=== PATIENT | female | born 1985 | race Caucasian/White ===

== ENCOUNTER 2017-01-27 02:08 | Inpatient (IN) | payer OTHER ==
[~2017-01-27] VITALS: Ht 162.6 cm; Wt 111.0 kg
[2017-01-27] MEDS ORDERED: OXYTOCIN 30U/ 0.9% NaCL 500ML 500 ML IV PRN (02:25)
[2017-01-27] MEDS ORDERED: OXYTOCIN 30U/ 0.9% NaCL 500ML 500 ML IV ONE (02:25)
[2017-01-27] MEDS ORDERED: OXYTOCIN 30U/ 0.9% NaCL 500ML 500 ML ONE (02:29)
[2017-01-27] MEDS ORDERED: ALUMINUM/MAG/SIMETHICONE 30 ML UDC PO PRN (02:30)
[2017-01-27] MEDS ORDERED: TERBUTALINE 1 MG/ML, 1ML IVPush PRN ×2 (02:30)
[2017-01-27] MEDS ORDERED: SODIUM CITRATE/CITRIC ACID 30 ML UDC PO PRN (02:30)
[2017-01-27] MEDS ORDERED: METOCLOPRAMIDE 5 MG/ML, 2ML IVPush PRN (02:30)
[2017-01-27] MEDS ORDERED: ONDANSETRON 2MG/ML, 2ML IVPush PRN (02:30)
[2017-01-27] MEDS ORDERED: FENTANYL PF 100 MCG/2ML IV PRN (02:30)
[2017-01-27] MEDS ORDERED: CALCIUM CARBONATE 500 MG TAB.CHEW PO PRN (02:30)
[2017-01-27 02:31] VITALS: BP 139/91
[2017-01-27] MEDS: LACTATED RINGERS 1,000 ML IV SCH ×3 (02:58→13:32)
[2017-01-27 02:59] LABS: HEMATOCRIT 40.6 % (34.6-47.8); HEMOGLOBIN 13.5 g/dL (11.7-16.4); WHITE BLOOD COUNT 7.7 x10^3/uL (3.4-10)
[2017-01-27] MEDS ORDERED: PLEASE ENTER ALLERGIES MC SCH ×4 (03:30→07:30)
[2017-01-27] MEDS ORDERED: FENTANYL PF 100 MCG/2ML ONE ×3 (10:53→21:49)
[2017-01-27] MEDS: FENTANYL PF 100 MCG/2ML IVPush PRN ×2 (10:56→12:13)
[2017-01-27] MEDS ORDERED: FENTANYL/BUPIV./NS/PF 250 ML EPIDCONT ONE (13:08)
[2017-01-27] MEDS: D5%-LACTATED RINGERS 1,000 ML IV SCH ×2 (13:35→19:29)
[2017-01-27] MEDS ORDERED: LACTATED RINGERS 1,000 ML IV SCH (13:42)
[2017-01-27] MEDS ORDERED: FENTANYL/BUPIV./NS/PF 250 ML EPIDCONT SCH (13:42)
[2017-01-27] MEDS ORDERED: LACTATED RINGERS 1,000 ML IVBOLUS PRN (14:00)
[2017-01-27] MEDS ORDERED: AMPICILLIN 2 GM in SODIUM CHLORIDE 0.9% 100 ML IV SCH (14:30)
[2017-01-27] MEDS: AMPICILLIN 2 GM in SODIUM CHLORIDE 0.9% 50 ML IV SCH (21:14)
[2017-01-28] MEDS: AMPICILLIN 2 GM in SODIUM CHLORIDE 0.9% 50 ML IV SCH (03:02)
[2017-01-28 03:14] LABS: HEMATOCRIT 41.4 % (34.6-47.8); HEMOGLOBIN 13.7 g/dL (11.7-16.4); WHITE BLOOD COUNT 17.6 x10^3/uL (3.4-10)
[2017-01-28 03:28] LABS: ASPARTATE AMINO TRANSFERASE 18 U/L (15-37); BLOOD UREA NITROGEN 9 mg/dL (7-18)
[2017-01-28] MEDS ORDERED: FENTANYL/BUPIV./NS/PF 250 ML EPIDCONT ONE (05:13)
[2017-01-28] MEDS ORDERED: OXYTOCIN 30U/ 0.9% NaCL 500ML 500 ML ONE (06:42)
[2017-01-28] MEDS ORDERED: KETOROLAC 30 MG/1 ML ONE (07:52)
[2017-01-28] MEDS ORDERED: CEFAZOLIN 1,000 MG ONE (07:52)
[2017-01-28] MEDS ORDERED: EPHEDRINE 50 MG/ML, 1ML ONE (07:52)
[2017-01-28] MEDS ORDERED: IBUPROFEN 600 MG TABLET ONE (08:42)
[2017-01-28] MEDS ORDERED: IBUPROFEN 200 MG TABLET PO ONE (09:00)
[2017-01-28 09:30] VITALS: BP 116/65
[2017-01-28] MEDS: OXYTOCIN 30U/ 0.9% NaCL 500ML 500 ML IV SCH ×2 (09:47→19:47)
[2017-01-28] MEDS ORDERED: METHYLERGONOVINE 0.2 MG/ML IM PRN (10:00)
[2017-01-28] MEDS ORDERED: CARBOPROST TROMETHAMINE 250 MCG/ML, 1ML IM PRN (10:00)
[2017-01-28] MEDS ORDERED: OXYcodone/APAP 5/325MG TABLET PO PRN ×2 (10:00)
[2017-01-28] MEDS ORDERED: ONDANSETRON 2MG/ML, 2ML IV PRN (10:00)
[2017-01-28] MEDS ORDERED: MISOPROSTOL 200 MCG TABLET PO PRN (10:00)
[2017-01-28] MEDS ORDERED: MISOPROSTOL 200 MCG TABLET PR PRN (10:00)
[2017-01-28] MEDS ORDERED: DOCUSATE 100 MG CAPSULE PO PRN (10:00)
[2017-01-28 12:14] VITALS: BP 117/70
[2017-01-28 14:27] LABS: HEMATOCRIT 35.6 % (34.6-47.8); HEMOGLOBIN 12.1 g/dL (11.7-16.4); WHITE BLOOD COUNT 23.1 x10^3/uL (3.4-10)
[2017-01-28 16:15] VITALS: BP 123/67
[2017-01-28] MEDS: IBUPROFEN 600 MG TABLET PO PRN (19:18)
[2017-01-28 19:35] VITALS: BP 139/83
[2017-01-29 00:16] VITALS: BP 108/60
[2017-01-29] MEDS: IBUPROFEN 600 MG TABLET PO PRN (01:37)
[2017-01-29 03:56] VITALS: BP 107/57
[2017-01-29] MEDS: OXYTOCIN 30U/ 0.9% NaCL 500ML 500 ML IV SCH (05:47)
[2017-01-29 08:00] VITALS: BP 101/63
[2017-01-29] MEDS ORDERED: PRENATAL VIT/IRON/FA 1 EACH TABLET PO SCH (09:00)
== END 2017-01-29 11:50 | disposition home or self-care (01) | DRG 775 ==
LOC: LDOP 02:08 → LDIP 02:34 → 2NW 01-28 09:20
PROVIDERS: ADMIT Obstetrics & Gynecology Maternal & Fetal Medicine; ATTEND Obstetrics & Gynecology Maternal & Fetal Medicine
PROC: 10E0XZZ Delivery of Products of Conception, External Approach (ICD-10-PCS; principal; 2017-01-28)
PROC: 0HQ9XZZ Repair Perineum Skin, External Approach (ICD-10-PCS; 2017-01-28)
PROC: 3E033VJ Introduction of Other Hormone into Peripheral Vein, Percutaneous Approach (ICD-10-PCS; 2017-01-28)
PROC: 00HU33Z Insertion of Infusion Device into Spinal Canal, Percutaneous Approach (ICD-10-PCS; 2017-01-28)
PROC: 3E0R3CZ (ICD-10-PCS; 2017-01-28)
PROC: 0T9B70Z Drainage of Bladder with Drainage Device, Via Natural or Artificial Opening (ICD-10-PCS; 2017-01-28)
DX: O69.81X0 Labor and delivery complicated by cord around neck, without compression, not applicable or unspecified (principal); O16.4 Unspecified maternal hypertension, complicating childbirth; O42.02 Full-term premature rupture of membranes, onset of labor within 24 hours of rupture; O76 Abnormality in fetal heart rate and rhythm complicating labor and delivery; O14.94 Unspecified pre-eclampsia, complicating childbirth; Z37.0 Single live birth; Z3A.40 40 weeks gestation of pregnancy; O43.123 Velamentous insertion of umbilical cord, third trimester; O70.0 First degree perineal laceration during delivery
CPT/HCPCS: 36415; 80053; 81001; 82248; 82570; 82803; 84156; 84550; 85025; 86850; 86900; J0290; J0690; J1885; J3010; J2590; J7120; J7121

== ENCOUNTER 2017-02-01 13:18 | Emergency (ER) | payer OTHER ==
[~2017-02-01] VITALS: Ht 162.6 cm; Wt 110.5 kg
[2017-02-01 13:32] VITALS: BP 134/83
== END 2017-02-01 14:18 | disposition left against medical advice (07) ==
LOC: ED 14:12
DX: R60.0 Localized edema (principal); R06.02 Shortness of breath
CPT/HCPCS: 93005; 99281